=== PATIENT | male | born 1960 | race Caucasian/White ===

== ENCOUNTER 2017-08-17 05:59 | Day surgery (SDC) | payer BC ==
[~2017-08-17] VITALS: Ht 188 cm; Wt 113.0 kg
[2017-08-17] VITALS (8 sets, daily range): BP systolic 123–144; BP diastolic 72–88; PULSE 71–79; TEMP 98.7
[2017-08-17 06:25] LABS: HEMATOCRIT 41.7 % (42.0-52.0); HEMOGLOBIN 14.7 g/dl (13.5-18.0); MEAN CELL VOLUME 88 fl (80.0-100.0); MEAN CORPUSCULAR HEMOGLOBIN 31 pg (27.0-31.0); MEAN CORPUSCULAR HGB CONC 35 g/dl (33.0-37.0); MEAN PLATELET VOLUME 10.7 fl (7.4-10.4); PLATELET COUNT 165 K/mm3 (130-400); RED BLOOD COUNT 4.76 M/mm3 (4.20-5.60)
[2017-08-17 06:34] LABS: CALCIUM 9.2 mg/dL (8.4-10.2); CREATININE, serum 1.06 mg/dL (0.66-1.25); POTASSIUM 4.1 mmol/L (3.4-5.0)
[2017-08-17] MEDS ORDERED: ZESTRIL40 MG PO (06:50)
[2017-08-17] MEDS ORDERED: ZOCOR 20MG20 MG PO (06:51)
[2017-08-17] MEDS ORDERED: GLUCOPHAGE1000 MG PO (06:51)
[2017-08-17] MEDS ORDERED: CARDENE 30MG CA30 M1 PO (06:53)
[2017-08-17] MEDS ORDERED: ASPIRIN 81M81 MG/TA2 PO (06:54)
[2017-08-17] MEDS ORDERED: BRILINTA90 MG PO (07:11)
[2017-08-17] MEDS ORDERED: KLONOPIN 0.5MG0.5 MG PO (07:12)
== END 2017-08-17 11:24 | disposition home or self-care (01) ==
LOC: COL.CAR 05:59
PROVIDERS: Internal Medicine Interventional Cardiology
DX: I25.119 Atherosclerotic heart disease of native coronary artery with unspecified angina pectoris (principal); R94.39 Abnormal result of other cardiovascular function study; I10 Essential (primary) hypertension; E11.9 Type 2 diabetes mellitus without complications; E66.9 Obesity, unspecified; E78.5 Hyperlipidemia, unspecified; I83.813 Varicose veins of bilateral lower extremities with pain; I87.2 Venous insufficiency (chronic) (peripheral); Z79.84 Long term (current) use of oral hypoglycemic drugs; Z88.8 Allergy status to other drugs, medicaments and biological substances; Z82.49 Family history of ischemic heart disease and other diseases of the circulatory system
CPT/HCPCS: J2250; J3010; Q9967

== ENCOUNTER 2019-07-06 09:40 | Inpatient (IN) | payer BC ==
[~2019-07-06] VITALS: Ht 188 cm; Wt 117.9 kg
[~2019-07-06 09:40] MED LIST: ASPIRIN 81M81 MG/TA2 PO; BRILINTA90 MG PO; CARDENE 30MG CA30 M1 PO; GLUCOPHAGE1000 MG PO; KLONOPIN 0.5MG0.5 MG PO; ZESTRIL40 MG PO; ZOCOR 20MG20 MG PO
[2019-08-15] VITALS (11 sets, daily range): BP systolic 115–138; BP diastolic 63–85; PULSE 74–97; TEMP 97.1–98.4
[2019-08-15] MEDS ORDERED: ZOCOR 20MG20 MG PO (05:52)
[2019-08-15] MEDS ORDERED: GLUCOTROL XL10 MG PO (05:53)
[2019-08-15] MEDS ORDERED: HCTZ 25MG TAB25 MG PO (05:54)
[2019-08-15] MEDS ORDERED: TRADJENTA5 MG PO (05:54)
[2019-08-15 06:11] LABS: HEMATOCRIT 43.4 % (42.0-52.0); MEAN CELL VOLUME 91 fl (80.0-100.0); MEAN CORPUSCULAR HEMOGLOBIN 31 pg (27.0-31.0); MEAN CORPUSCULAR HGB CONC 35 g/dl (33.0-37.0); MEAN PLATELET VOLUME 11.8 fl (7.4-10.4); PLATELET COUNT 62 K/mm3 (130-400); RED BLOOD COUNT 4.79 M/mm3 (4.20-5.60); REDCELL DISTRIBUTION WIDTH-CV 12.4 % (11.5-14.5)
[2019-08-15 06:22] LABS: CREATININE, serum 0.84 (0.66-1.25); POTASSIUM 4.2 mmol/L (3.4-5.0)
--- NOTE | 2019-08-15 06:26 | NUR ---
The patient ambulated back to Day 7 independenlty using a steady gait and appeared to tolerate the activity well. Vital signs obtained. Consent signed. 18G IV started in left hand on second attmept, blood obtained from IV start for labs as ordered. NS appears to be infusing through the IV without difficulty. Heart Reg. Lungs clear. Bowel sounds audible. Call light is within reach. Blood sugar was obtained with blood from the IV start with a result of 302. D SUSANNAH Ayers is to be notified of the patient's blood sugar prior to surgery. The patient denies any needs at this time. Will continue to monitor the patient.
--- NOTE | 2019-08-15 12:45 | NUR ---
Patient is back from surgery. He is drowsy but oriented. Stated having some burning and pain to lower abdomen but it is better than right after surgery. Denies nausea. Incisions are well approximated. EMILY drain to bulb suction, no drianage to bulb at this time. Galdamez secured to leg, urine output is redtinged with a few small clots. Explained ERAS protocol. No questions verbalized. No other changes a this time. Call light within reach.
--- NOTE | 2019-08-15 18:30 | NUR ---
Patient is dong well. Tolerating clear liquids without nausea. Minimal complaints of pain. His urine is more peach colored, no clots noted but some sedement is present. Explianed clear liquid diet ordered for tonight. No other changes at this time. Call light within reach.
--- NOTE | 2019-08-15 22:02 | NUR ---
PATIENT DOING WELLL TONIGHT. ALERT AND ORIENTED. C/O MILD PAIN TO ABD, SCHEDULED TYLENOL AND TORADOL GIVEN. X5 LAPS CDI WITH SWIFTSET. EMILY DRAIN TO L ABD HAS SMALL AMOUNT OF BLOODY DRAINAGE NOTED. SANTOS TO DEPENDENT DRAINAGE WITH ILENE URINE WITH SEDIMENT NOTED. IV TO L HAND INFUSING LR AT 125 ML/HR WITHOUT ISSUE. PATIENT AMBULATED IN BELTRAN WITH STANDBY ASSIST. SCDS ON. NO FURTHER NEEDS AT THIS TIME. PATIENT RESTING COMFORTABLY IN BED. WILL CONTINUE TO MONITOR.
[2019-08-16 00:36] VITALS: BP 108/66; PULSE 86; TEMP 98.2
[2019-08-16 05:36] VITALS: BP 109/60; PULSE 80; TEMP 98.9
[2019-08-16 06:14] LABS: HEMATOCRIT 37.9 % (42.0-52.0)
[2019-08-16 06:22] LABS: CALCIUM 8.5 mg/dL (8.4-10.2); CREATININE, serum 0.92 (0.66-1.25); POTASSIUM 4.2 mmol/L (3.4-5.0)
[2019-08-16 07:40] VITALS: BP 110/68; PULSE 80; TEMP 98.6
--- NOTE | 2019-08-16 08:00 | NUR ---
Patient resting in bed at this time, alert and oriented, answers questions appropriately. Galdamez in place draining pale yellow urine with some sediment visible. EMILY drain in place, scant bloody drainage in collection bulb. IVF to INT per order. Patient denies pain or needs at this time, call light within reach.
--- NOTE | 2019-08-16 10:52 | NUR ---
[facility] met with the patient to complete initial intake. The patient lives in [place] with Sunitha Montes De Oca. The patient denies DME use and is independent with ADLs. The patient's PCP is REMA Whatley at [facility] in [place]. The patient receives medications from [facility] or [facility] in . The patient does not have advanced directives in the EMR. The patient plans to return home at discharge with Sunitha Montes De Oca providing transportation. There are no additional needs at this time.
--- NOTE | 2019-08-16 12:31 | NUR ---
First visit from the vehicle washer. No needs right now.
--- NOTE | 2019-08-16 13:30 | NUR ---
Discharge teaching completed. Discussed follow up appointment, discharge activity restrictions, bathing instructions, and leg bag teaching. EMILY drain removed per order. One suture cut from drain tubing and one from drain site. Drain was removed intact, patient tolerated procedure well. Sterile 4x4's and ABD pad placed over insertion site. Patient informed that drainage from site is to be expected and extra dressing supplies sent with patient. Patient denies questions or concerns at this time, patient escored to admissions entrance where patient entered a private vehicle.
== END 2019-08-16 13:30 | disposition home or self-care (01) | DRG 708 ==
LOC: INPTSU 08-15 05:26 → SURG 08-15 07:30
PROVIDERS: Nurse Anesthetist, Certified Registered; ADMIT Urology
PROC: 07BC4ZZ Excision of Pelvis Lymphatic, Percutaneous Endoscopic Approach (ICD-10-PCS; 2019-08-15)
PROC: 8E0W4CZ Robotic Assisted Procedure of Trunk Region, Percutaneous Endoscopic Approach (ICD-10-PCS; 2019-08-15)
PROC: 0VT04ZZ Resection of Prostate, Percutaneous Endoscopic Approach (ICD-10-PCS; principal; 2019-08-15 07:30)
DX: C61 Malignant neoplasm of prostate (principal); N52.9 Male erectile dysfunction, unspecified; E11.9 Type 2 diabetes mellitus without complications; I10 Essential (primary) hypertension; I25.119 Atherosclerotic heart disease of native coronary artery with unspecified angina pectoris; G47.00 Insomnia, unspecified; E78.2 Mixed hyperlipidemia; E66.9 Obesity, unspecified; Z68.33 Body mass index [BMI] 33.0-33.9, adult; Z87.891 Personal history of nicotine dependence
CPT/HCPCS: A4314; J0690; J1170; J1815; J1885; J2405; J2704; J3010; J7030; J7120

== ENCOUNTER 2020-04-21 16:53 | Emergency (ER) | payer BC ==
[~2020-04-21] VITALS: Ht 188 cm; Wt 113.6 kg
[~2020-04-21 16:53] MED LIST changes: +GLUCOTROL XL10 MG PO; +HCTZ 25MG TAB25 MG PO; +TRADJENTA5 MG PO
[2020-04-21 16:57] VITALS: TEMP 97.5
[2020-04-21 17:56] VITALS: BP 160/87; PULSE 60
== END 2020-04-21 17:57 | disposition home or self-care (01) ==
LOC: COL.ER 16:53
DX: N48.30 Priapism, unspecified (principal); Z85.46 Personal history of malignant neoplasm of prostate; Z79.02 Long term (current) use of antithrombotics/antiplatelets; Z79.84 Long term (current) use of oral hypoglycemic drugs